=== PATIENT | female | born 1940 | race Caucasian/White ===

== ENCOUNTER 2017-11-21 05:33 | Inpatient (IN) | payer OTHER ==
[~2017-11-21] VITALS: Ht 154.9 cm; Wt 103.0 kg
[2017-11-21] MEDS ORDERED: ASPIRIN325 MG PO (06:18)
[2017-11-21] MEDS ORDERED: NORVASC10 MG PO (06:19)
[2017-11-21] MEDS ORDERED: TENORMIN50 MG PO (06:19)
[2017-11-21] MEDS ORDERED: LIPITOR40 MG PO (06:20)
[2017-11-21] MEDS ORDERED: PLAVIX75 MG PO (06:20)
[2017-11-21] MEDS ORDERED: VITAMIN B-12250 MCG PO (06:21)
[2017-11-21] MEDS ORDERED: HYDROCODON-ACE1 EAC7 PO (06:22)
[2017-11-21] MEDS ORDERED: GLUCOTROL10 MG PO (06:22)
[2017-11-21] MEDS ORDERED: HUMALOG MI100 UNIT/1 SC ×2 (06:24→06:25)
[2017-11-21] MEDS ORDERED: TIROSINT75 MCG PO (06:26)
[2017-11-21] MEDS ORDERED: PROTONIX40 MG PO (06:27)
[2017-11-21] MEDS ORDERED: ZESTRIL40 MG PO (06:27)
[2017-11-21] MEDS ORDERED: GLUCOPHAGE850 MG PO (06:27)
[2017-11-21] MEDS ORDERED: MULTI VITAMIN1 EACH PO (06:28)
[2017-11-21] MEDS ORDERED: VOLTAREN 1% GE100 GM TP (06:28)
[2017-11-21 06:42] LABS: HEMOGLOBIN 9.3 G/DL (11.9-15.5); MCH 29.8 PG (29.0-34.0); MCHC 32.1 G/DL (30.0-36.0); MCV 92.9 FL (83-99); PLATELET COUNT 237 K/uL (156-360); RBC DIS.WIDTH-CV 13.3 % (11.8-14.6); RBC DIS.WIDTH-SD 44.9 % (39-53); RED BLOOD COUNT 3.12 M/uL (3.80-5.20); WHITE BLOOD COUNT 7.2 K/uL (4.1-10.2)
[2017-11-21 06:51] LABS: PTT 22.7 SEC (25-37)
[2017-11-21 07:13] LABS: TROP-I INTERPRETATION NEGATIVE; TROPONIN-I 0.02 ng/mL (0.0-0.30)
[2017-11-21 07:40] LABS: ALBUMIN 3.9 G/DL (3.2-4.8); ALKALINE PHOSPHATASE 69 IU/L (3-129); ALT (GPT) 12 IU/L (3-49); AST (GOT) 12 IU/L (2-34); CHLORIDE 97 MEQ/L (99-109); CREATININE 1.2 MG/DL (0.6-1.3); GFR ESTIMATE (CALCULATED) 47 mL/min/; GLUCOSE 350 mg/dL (70-99); POTASSIUM 4.6 MEQ/L (3.7-5.4); SODIUM 132 MEQ/L (136-147); TOTAL BILIRUBIN 0.2 MG/DL (0.0-1.0); TOTAL PROTEIN 5.7 G/DL (6.4-8.3); UREA NITROGEN (BUN) 27 mg/dL (9-23)
[2017-11-21 09:19] LABS: TROP-I INTERPRETATION NEGATIVE; TROPONIN-I 0.21 ng/mL (0.0-0.30)
[2017-11-21] MEDS ORDERED: NEURONTIN300 MG PO (09:27)
[2017-11-21] MEDS ORDERED: PROAIR HFA8.5 GM IH (09:28)
[2017-11-21] MEDS ORDERED: NITROSTAT0.4 MG SL (09:31)
[2017-11-21 10:46] LABS: HDL CHOLESTEROL 56 MG/DL (Desirable>=50); LDL CHOLESTEROL 50 mg/dL (Desirable<100); NON-HDL CHOLESTEROL 77 mg/dL (Desirable<160); TOTAL CHOLESTEROL 133 mg/dL (Desirable<200); TRIGLYCERIDES 135 MG/DL (Normal: <150)
[2017-11-21 12:30] VITALS: BP 149/73
[2017-11-21 12:30] LABS: TROP-I INTERPRETATION POSITIVE
[2017-11-21 12:30] LABS: HEMOGLOBIN A1c (GLYCOHEMOGLOB) 7.1 % (Below 5.7)
[2017-11-21 12:33] LABS: TROPONIN-I 4.01 ng/mL (0.0-0.30)
[2017-11-21 15:45] VITALS: BP 115/55
[2017-11-21 19:33] LABS: TROP-I INTERPRETATION POSITIVE; TROPONIN-I 32.99 ng/mL (0.0-0.30)
[2017-11-21 20:25] VITALS: BP 132/63
[2017-11-21 22:25] VITALS: BP 136/64
[2017-11-22] VITALS (13 sets, daily range): BP systolic 115–147; BP diastolic 47–67
[2017-11-22 08:40] LABS: HEMOGLOBIN 9.3 G/DL (11.9-15.5); MCH 29.5 PG (29.0-34.0); MCHC 32.1 G/DL (30.0-36.0); MCV 92.1 FL (83-99); PLATELET COUNT 235 K/uL (156-360); RBC DIS.WIDTH-CV 13.6 % (11.8-14.6); RBC DIS.WIDTH-SD 46.5 % (39-53); RED BLOOD COUNT 3.15 M/uL (3.80-5.20)
[2017-11-22 09:03] LABS: CHLORIDE 103 MEQ/L (99-109); GFR ESTIMATE (CALCULATED) 57 mL/min/; GLUCOSE 197 mg/dL (70-99); POTASSIUM 4.3 MEQ/L (3.7-5.4); SODIUM 136 MEQ/L (136-147); UREA NITROGEN (BUN) 27 mg/dL (9-23)
[2017-11-23 04:02] VITALS: BP 132/60
[2017-11-23 05:01] LABS: BASOPHIL (%) 0.2 % (0-1); EOSINOPHIL (%) 2.7 % (0-5); EOSINOPHIL COUNT 0.2 K/uL (0-0.3); HEMATOCRIT 26.3 % (36.0-46.0); HEMOGLOBIN 8.6 G/DL (11.9-15.5); IMMATURE GRANULOCYTE (%) 0.3 % (0.0-0.7); LYMPHOCYTE (%) 16.4 % (15-42); MCH 29.9 PG (29.0-34.0); MCHC 32.7 G/DL (30.0-36.0); MCV 91.3 FL (83-99); MONOCYTE (%) 9.9 % (3-12); MONOCYTE COUNT 0.6 K/uL (0-0.8); NEUTROPHIL (%) 70.5 % (45-76); NEUTROPHIL COUNT 4.1 K/uL (1.8-6.4); PLATELET COUNT 199 K/uL (156-360); RBC DIS.WIDTH-CV 13.5 % (11.8-14.6); RBC DIS.WIDTH-SD 45.6 % (39-53); RED BLOOD COUNT 2.88 M/uL (3.80-5.20); WHITE BLOOD COUNT 5.9 K/uL (4.1-10.2)
[2017-11-23 05:21] LABS: CHLORIDE 104 mEq/L (99-109); POTASSIUM 4.5 mEq/L (3.7-5.4); SODIUM 138 mEq/L (136-147)
[2017-11-23 05:23] LABS: GLUCOSE 170 mg/dL (70-99)
[2017-11-23 05:27] LABS: CREATININE 1.2 mg/dL (0.6-1.3); GFR ESTIMATE (CALCULATED) 47 mL/min/
[2017-11-23 05:28] LABS: UREA NITROGEN (BUN) 27 mg/dL (9-23)
[2017-11-23 09:06] VITALS: BP 124/79
[2017-11-23 11:34] VITALS: BP 137/64
[2017-11-23 15:32] VITALS: BP 142/78
[2017-11-23 19:53] VITALS: BP 142/62
[2017-11-24 00:16] VITALS: BP 121/53
[2017-11-24 04:35] VITALS: BP 138/60
[2017-11-24 05:47] LABS: HEMATOCRIT 27.5 % (36.0-46.0); HEMOGLOBIN 8.9 G/DL (11.9-15.5); MCH 29.9 PG (29.0-34.0); MCHC 32.4 G/DL (30.0-36.0); MCV 92.3 FL (83-99); PLATELET COUNT 204 K/uL (156-360); RBC DIS.WIDTH-CV 13.2 % (11.8-14.6); RBC DIS.WIDTH-SD 44.1 % (39-53); RED BLOOD COUNT 2.98 M/uL (3.80-5.20); WHITE BLOOD COUNT 5.2 K/uL (4.1-10.2)
[2017-11-24 06:21] LABS: CHLORIDE 102 MEQ/L (99-109); GFR ESTIMATE (CALCULATED) 57 mL/min/; GLUCOSE 152 mg/dL (70-99); POTASSIUM 4.5 MEQ/L (3.7-5.4); SODIUM 138 MEQ/L (136-147); UREA NITROGEN (BUN) 28 mg/dL (9-23)
[2017-11-24 09:32] VITALS: BP 127/69
[2017-11-24] MEDS ORDERED: FUROSEMIDE20 MG PO (10:55)
[2017-11-24] MEDS ORDERED: ASPIR-LOW81 MG PO (12:24)
== END 2017-11-24 13:24 | disposition home health service (06) | DRG 282 ==
LOC: EME 05:33 → EDOF 09:32 → 4EAST 09:32 → ENRESERV 09:40 → EDOF 09:49 → ENRESERV 11:11 → 4EAST 12:41 → ENPENDDIS 11-24 → 4EAST 11-24 13:24
PROVIDERS: Emergency Medicine; Hospitalist; Internal Medicine; Physician Assistant
DX: I21.4 Non-ST elevation (NSTEMI) myocardial infarction (principal); I25.110 Atherosclerotic heart disease of native coronary artery with unstable angina pectoris; E11.9 Type 2 diabetes mellitus without complications; I11.0 Hypertensive heart disease with heart failure; I50.9 Heart failure, unspecified; I27.20 Pulmonary hypertension, unspecified; I08.2 Rheumatic disorders of both aortic and tricuspid valves; E78.5 Hyperlipidemia, unspecified; D50.9 Iron deficiency anemia, unspecified; E03.9 Hypothyroidism, unspecified; Z95.1 Presence of aortocoronary bypass graft; Z79.4 Long term (current) use of insulin; Z79.02 Long term (current) use of antithrombotics/antiplatelets; Z79.82 Long term (current) use of aspirin; Z90.710 Acquired absence of both cervix and uterus; Z82.49 Family history of ischemic heart disease and other diseases of the circulatory system
CPT/HCPCS: 70450; 71045; 71275; 80048; 80053; 80061; 82272; 82948; 83036; 84484; 85025; 85027; 85610; 85730; 93005; 93306; 94799; 99281; 99285; C1760; C1769; C1887; C1894; J1644; J1815; J1940; J2250; J2270; J3010; J7040; S0028

== ENCOUNTER 2018-04-07 17:49 | Inpatient (IN) | payer OTHER ==
[~2018-04-07] VITALS: Ht 154.9 cm; Wt 95.5 kg
[~2018-04-07 17:49] MED LIST: ASPIR-LOW81 MG PO; ASPIRIN325 MG PO; FUROSEMIDE20 MG PO; GLUCOPHAGE850 MG PO; GLUCOTROL10 MG PO; HUMALOG MI100 UNIT/1 SC; HYDROCODON-ACE1 EAC7 PO; LIPITOR40 MG PO; MULTI VITAMIN1 EACH PO; NEURONTIN300 MG PO; NITROSTAT0.4 MG SL; NORVASC10 MG PO; PLAVIX75 MG PO; PROAIR HFA8.5 GM IH; PROTONIX40 MG PO; TENORMIN50 MG PO; TIROSINT75 MCG PO; VITAMIN B-12250 MCG PO; VOLTAREN 1% GE100 GM TP; ZESTRIL40 MG PO
[2018-04-07 18:30] LABS: BASOPHIL (%) 0.5 % (0-1); EOSINOPHIL (%) 1.2 % (0-5); EOSINOPHIL COUNT 0.1 K/uL (0-0.3); HEMATOCRIT 29.8 % (36.0-46.0); HEMOGLOBIN 9.9 G/DL (11.9-15.5); IMMATURE GRANULOCYTE (%) 0.5 % (0.0-0.7); LYMPHOCYTE (%) 11.3 % (15-42); LYMPHOCYTE COUNT 0.5 K/uL (1.0-2.8); MCH 30.3 PG (29.0-34.0); MCHC 33.2 G/DL (30.0-36.0); MCV 91.1 FL (83-99); MONOCYTE (%) 6.8 % (3-12); MONOCYTE COUNT 0.3 K/uL (0-0.8); NEUTROPHIL (%) 79.7 % (45-76); NEUTROPHIL COUNT 3.4 K/uL (1.8-6.4); PLATELET COUNT 191 K/uL (156-360); RBC DIS.WIDTH-CV 13.6 % (11.8-14.6); RBC DIS.WIDTH-SD 45.5 % (39-53); RED BLOOD COUNT 3.27 M/uL (3.80-5.20); WHITE BLOOD COUNT 4.2 K/uL (4.1-10.2)
[2018-04-07 18:43] LABS: ALBUMIN 4.3 g/dL (3.2-4.8)
[2018-04-07 18:44] LABS: CHLORIDE 102 mEq/L (99-109); INTER. NORMALIZED RATIO 1.1; POTASSIUM 4.2 mEq/L (3.7-5.4); SODIUM 136 mEq/L (136-147)
[2018-04-07 18:46] LABS: GLUCOSE 278 mg/dL (70-99); TOTAL PROTEIN 6.8 g/dL (6.4-8.3)
[2018-04-07 18:47] LABS: PTT 28.3 SEC (25-37)
[2018-04-07 18:48] LABS: TOTAL BILIRUBIN 0.3 mg/dL (0.0-1.0)
[2018-04-07 18:49] LABS: ALKALINE PHOSPHATASE 96 IU/L (3-129)
[2018-04-07 18:50] LABS: CREATININE 1.2 mg/dL (0.6-1.3); GFR ESTIMATE (CALCULATED) 46 mL/min/
[2018-04-07 18:51] LABS: AST (GOT) 27 IU/L (2-34); UREA NITROGEN (BUN) 18 mg/dL (9-23)
[2018-04-07 18:53] LABS: ALT (GPT) 18 IU/L (3-49)
[2018-04-07 18:58] LABS: TROP-I INTERPRETATION NEGATIVE; TROPONIN-I 0.04 ng/mL (0.0-0.30)
[2018-04-07] MEDS ORDERED: BENZONATATE100 MG PO (21:27)
[2018-04-07] MEDS ORDERED: DOXYCYCLINE HY100 MG PO (21:28)
[2018-04-07] MEDS ORDERED: ARTIFICIAL TEAR1510 BOTH EYES (21:29)
[2018-04-07] MEDS ORDERED: VITAMIN B122500 MCG PO (21:29)
[2018-04-07] MEDS ORDERED: ANBESOL12 ML MM (21:29)
[2018-04-07] MEDS ORDERED: FLONASE16 G1 BOTH NARES (21:30)
[2018-04-07] MEDS ORDERED: CLARITIN,ALAVAR10 MG PO (21:30)
[2018-04-07] MEDS ORDERED: TYLENOL WITH C1 EACH PO (21:31)
[2018-04-07] MEDS ORDERED: TUSSIN100 MG/5 M PO (21:31)
[2018-04-07] MEDS ORDERED: SYNTHROID75 MCG PO (21:34)
[2018-04-07] MEDS ORDERED: LASIX20 MG PO (21:35)
[2018-04-07 22:41] LABS: MAGNESIUM 1.3 mg/dL (1.3-2.7)
[2018-04-07 22:45] VITALS: BP 163/78
[2018-04-07 22:46] LABS: PHOSPHORUS 3.3 mg/dL (2.5-4.9)
[2018-04-07 23:00] VITALS: BP 141/68; BP 163/78
[2018-04-08] VITALS (21 sets, daily range): BP systolic 100–146; BP diastolic 45–89
[2018-04-08 01:01] LABS: TROP-I INTERPRETATION INDETERMINATE; TROPONIN-I 0.44 ng/mL (0.0-0.30)
[2018-04-08 05:05] LABS: HEMATOCRIT 25.9 % (36.0-46.0); HEMOGLOBIN 8.6 G/DL (11.9-15.5); MCH 29.9 PG (29.0-34.0); MCHC 33.2 G/DL (30.0-36.0); MCV 89.9 FL (83-99); PLATELET COUNT 181 K/uL (156-360); RBC DIS.WIDTH-CV 13.5 % (11.8-14.6); RBC DIS.WIDTH-SD 44.8 % (39-53); RED BLOOD COUNT 2.88 M/uL (3.80-5.20); WHITE BLOOD COUNT 3.5 K/uL (4.1-10.2)
[2018-04-08 05:13] LABS: CHLORIDE 95 mEq/L (99-109); SODIUM 130 mEq/L (136-147)
[2018-04-08 05:19] LABS: CREATININE 1.6 mg/dL (0.6-1.3); GFR ESTIMATE (CALCULATED) 33 mL/min/
[2018-04-08 05:20] LABS: UREA NITROGEN (BUN) 22 mg/dL (9-23)
[2018-04-08 05:21] LABS: GLUCOSE 551 mg/dL (70-99); MAGNESIUM 2.3 mg/dL (1.3-2.7); PHOSPHORUS 4.6 mg/dL (2.5-4.9); POTASSIUM 5.2 mEq/L (3.7-5.4)
[2018-04-08 05:31] LABS: TROP-I INTERPRETATION POSITIVE
[2018-04-08 05:35] LABS: TROPONIN-I 1.68 ng/mL (0.0-0.30)
[2018-04-08 12:41] LABS: TROP-I INTERPRETATION POSITIVE; TROPONIN-I 3.35 ng/mL (0.0-0.30)
[2018-04-08 15:56] LABS: TROP-I INTERPRETATION POSITIVE; TROPONIN-I 2.97 ng/mL (0.0-0.30)
[2018-04-08 16:09] LABS: THYROTROPIN (TSH) 0.53 MIU/L (0.4-5.5)
[2018-04-08 16:23] LABS: CHLORIDE 99 MEQ/L (99-109); CREATININE 1.2 MG/DL (0.6-1.3); GFR ESTIMATE (CALCULATED) 46 mL/min/; HIGH-SENS C-REACTIVE PROTEIN 0.87 MG/DL (0.02-0.20); POTASSIUM 4.6 MEQ/L (3.7-5.4); SODIUM 134 MEQ/L (136-147); UREA NITROGEN (BUN) 26 mg/dL (9-23)
[2018-04-08 16:24] LABS: GLUCOSE 204 mg/dL (70-99)
[2018-04-09] VITALS (16 sets, daily range): BP systolic 113–162; BP diastolic 44–81
[2018-04-09 04:32] LABS: CHLORIDE 97 mEq/L (99-109); POTASSIUM 5.3 mEq/L (3.7-5.4); SODIUM 130 mEq/L (136-147)
[2018-04-09 04:37] LABS: PHOSPHORUS 3.6 mg/dL (2.5-4.9)
[2018-04-09 04:38] LABS: CREATININE 1.4 mg/dL (0.6-1.3); GFR ESTIMATE (CALCULATED) 39 mL/min/
[2018-04-09 04:39] LABS: UREA NITROGEN (BUN) 29 mg/dL (9-23)
[2018-04-09 04:44] LABS: GLUCOSE 379 mg/dL (70-99)
[2018-04-09 04:45] LABS: BASOPHIL (%) 0.1 % (0-1); EOSINOPHIL (%) 0 % (0-5); HEMATOCRIT 26.8 % (36.0-46.0); HEMOGLOBIN 8.9 G/DL (11.9-15.5); IMMATURE GRANULOCYTE (%) 0.5 % (0.0-0.7); LYMPHOCYTE (%) 3.7 % (15-42); LYMPHOCYTE COUNT 0.3 K/uL (1.0-2.8); MCHC 33.2 G/DL (30.0-36.0); MCV 90.2 FL (83-99); MONOCYTE (%) 2.4 % (3-12); MONOCYTE COUNT 0.2 K/uL (0-0.8); NEUTROPHIL (%) 93.3 % (45-76); NEUTROPHIL COUNT 8.2 K/uL (1.8-6.4); PLATELET COUNT 201 K/uL (156-360); RBC DIS.WIDTH-CV 13.3 % (11.8-14.6); RBC DIS.WIDTH-SD 43.9 % (39-53); RED BLOOD COUNT 2.97 M/uL (3.80-5.20); WHITE BLOOD COUNT 8.8 K/uL (4.1-10.2)
[2018-04-10 00:07] VITALS: BP 141/67
[2018-04-10 04:36] VITALS: BP 152/66
[2018-04-10 06:45] LABS: HEMATOCRIT 26.5 % (36.0-46.0); HEMOGLOBIN 8.5 G/DL (11.9-15.5); MCH 29.1 PG (29.0-34.0); MCHC 32.1 G/DL (30.0-36.0); MCV 90.8 FL (83-99); PLATELET COUNT 198 K/uL (156-360); RBC DIS.WIDTH-CV 13.1 % (11.8-14.6); RBC DIS.WIDTH-SD 43.6 % (39-53); RED BLOOD COUNT 2.92 M/uL (3.80-5.20); WHITE BLOOD COUNT 6.7 K/uL (4.1-10.2)
[2018-04-10 07:08] LABS: CHLORIDE 101 MEQ/L (99-109); CREATININE 1.1 MG/DL (0.6-1.3); GFR ESTIMATE (CALCULATED) 51 mL/min/; GLUCOSE 295 mg/dL (70-99); MAGNESIUM 1.8 mg/dl (1.3-2.7); PHOSPHORUS 3.8 mg/dL (2.5-4.9); POTASSIUM 5.2 MEQ/L (3.7-5.4); SODIUM 133 MEQ/L (136-147); UREA NITROGEN (BUN) 31 mg/dL (9-23)
[2018-04-10 07:40] VITALS: BP 159/65
[2018-04-10 11:58] VITALS: BP 138/58
[2018-04-10 16:19] VITALS: BP 121/59
[2018-04-10 22:00] VITALS: BP 135/55
[2018-04-11 00:52] VITALS: BP 144/59
[2018-04-11 04:12] VITALS: BP 162/61
[2018-04-11 06:14] LABS: HEMATOCRIT 26.3 % (36.0-46.0); HEMOGLOBIN 8.5 G/DL (11.9-15.5); MCH 29.3 PG (29.0-34.0); MCHC 32.3 G/DL (30.0-36.0); MCV 90.7 FL (83-99); PLATELET COUNT 207 K/uL (156-360); RBC DIS.WIDTH-CV 13.2 % (11.8-14.6); RBC DIS.WIDTH-SD 44.3 % (39-53); WHITE BLOOD COUNT 8.3 K/uL (4.1-10.2)
[2018-04-11 06:38] LABS: CHLORIDE 102 MEQ/L (99-109); CREATININE 1.2 MG/DL (0.6-1.3); GFR ESTIMATE (CALCULATED) 46 mL/min/; GLUCOSE 239 mg/dL (70-99); MAGNESIUM 1.7 mg/dl (1.3-2.7); PHOSPHORUS 3.1 mg/dL (2.5-4.9); POTASSIUM 4.5 MEQ/L (3.7-5.4); SODIUM 135 MEQ/L (136-147); UREA NITROGEN (BUN) 36 mg/dL (9-23)
[2018-04-11 08:05] VITALS: BP 147/98
[2018-04-11 11:19] VITALS: BP 153/67
[2018-04-11 14:57] VITALS: BP 140/63
[2018-04-11 19:34] VITALS: BP 132/62
[2018-04-12 02:08] VITALS: BP 137/60
[2018-04-12 05:39] LABS: HEMATOCRIT 25.9 % (36.0-46.0); HEMOGLOBIN 8.4 G/DL (11.9-15.5); MCH 29.6 PG (29.0-34.0); MCHC 32.4 G/DL (30.0-36.0); MCV 91.2 FL (83-99); PLATELET COUNT 206 K/uL (156-360); RBC DIS.WIDTH-CV 13.5 % (11.8-14.6); RBC DIS.WIDTH-SD 44.8 % (39-53); RED BLOOD COUNT 2.84 M/uL (3.80-5.20); WHITE BLOOD COUNT 6.2 K/uL (4.1-10.2)
[2018-04-12 06:06] LABS: CHLORIDE 105 MEQ/L (99-109); CREATININE 1.1 MG/DL (0.6-1.3); GFR ESTIMATE (CALCULATED) 51 mL/min/; MAGNESIUM 1.6 mg/dl (1.3-2.7); PHOSPHORUS 4.1 mg/dL (2.5-4.9); SODIUM 140 MEQ/L (136-147); UREA NITROGEN (BUN) 34 mg/dL (9-23)
[2018-04-12 06:12] LABS: GLUCOSE 60 mg/dL (70-99)
[2018-04-12 07:25] VITALS: BP 146/63
[2018-04-12 11:31] VITALS: BP 117/56
[2018-04-12 15:08] VITALS: BP 117/58
[2018-04-12 23:57] VITALS: BP 154/66
[2018-04-13 06:22] LABS: HEMATOCRIT 28.4 % (36.0-46.0); HEMOGLOBIN 9.3 G/DL (11.9-15.5); MCH 29.3 PG (29.0-34.0); MCHC 32.7 G/DL (30.0-36.0); MCV 89.6 FL (83-99); PLATELET COUNT 245 K/uL (156-360); RBC DIS.WIDTH-CV 13.2 % (11.8-14.6); RBC DIS.WIDTH-SD 43.6 % (39-53); RED BLOOD COUNT 3.17 M/uL (3.80-5.20)
[2018-04-13 06:45] LABS: CHLORIDE 99 MEQ/L (99-109); CREATININE 1.3 MG/DL (0.6-1.3); GFR ESTIMATE (CALCULATED) 42 mL/min/; GLUCOSE 303 mg/dL (70-99); MAGNESIUM 1.6 mg/dl (1.3-2.7); POTASSIUM 4.1 MEQ/L (3.7-5.4); SODIUM 135 MEQ/L (136-147); UREA NITROGEN (BUN) 34 mg/dL (9-23)
[2018-04-13 07:21] VITALS: BP 168/70
[2018-04-13 11:34] VITALS: BP 138/62
[2018-04-13] MEDS ORDERED: MONTELUKAST SOD10 MG PO (13:10)
[2018-04-13] MEDS ORDERED: DULERA 100 MCG/13 GM IH (13:35)
[2018-04-13 15:51] VITALS: BP 118/56
[2018-04-13 20:14] VITALS: BP 133/62
[2018-04-14 00:31] VITALS: BP 157/68
[2018-04-14 03:29] VITALS: BP 164/72
[2018-04-14 03:58] LABS: HEMATOCRIT 24.4 % (36.0-46.0); HEMOGLOBIN 8.3 G/DL (11.9-15.5); MCH 30.2 PG (29.0-34.0); MCV 88.7 FL (83-99); PLATELET COUNT 214 K/uL (156-360); RBC DIS.WIDTH-CV 13.5 % (11.8-14.6); RBC DIS.WIDTH-SD 43.3 % (39-53); RED BLOOD COUNT 2.75 M/uL (3.80-5.20); WHITE BLOOD COUNT 6.6 K/uL (4.1-10.2)
[2018-04-14 04:24] LABS: CHLORIDE 103 mEq/L (99-109); SODIUM 137 mEq/L (136-147)
[2018-04-14 04:25] LABS: MAGNESIUM 1.7 mg/dL (1.3-2.7)
[2018-04-14 04:29] LABS: PHOSPHORUS 3.9 mg/dL (2.5-4.9)
[2018-04-14 04:30] LABS: CREATININE 1.1 mg/dL (0.6-1.3); GFR ESTIMATE (CALCULATED) 51 mL/min/
[2018-04-14 04:31] LABS: UREA NITROGEN (BUN) 38 mg/dL (9-23)
[2018-04-14 04:47] LABS: GLUCOSE 109 mg/dL (70-99)
[2018-04-14 06:40] LABS: CHLORIDE 103 MEQ/L (99-109); CREATININE 1.2 MG/DL (0.6-1.3); GFR ESTIMATE (CALCULATED) 46 mL/min/; GLUCOSE 107 mg/dL (70-99); POTASSIUM 4.2 MEQ/L (3.7-5.4); SODIUM 140 MEQ/L (136-147); UREA NITROGEN (BUN) 36 mg/dL (9-23)
[2018-04-14 07:11] VITALS: BP 140/84
[2018-04-14] MEDS ORDERED: HUMALOG MI100 UNIT/1 SC ×2 (11:58→11:59)
[2018-04-14] MEDS ORDERED: PREDNISONE10 MG PO (12:01)
[2018-04-14] MEDS ORDERED: IMDUR60 MG PO (12:12)
== END 2018-04-14 15:35 | disposition home health service (06) | DRG 302 ==
LOC: EME 17:49 → 5SOUTH 21:58 → EDOF 21:58 → 4WEST 21:58 → ENRESERV 22:04 → 4WEST 22:54 → ENRESERV 04-09 12:17 → 4EAST 04-09 16:01 → ENRESERV 04-11 08:33 → 5SOUTH 04-11 11:01
PROVIDERS: Emergency Medicine; Hospitalist; Internal Medicine; Student in an Organized Health Care Education/Training Program
DX: I25.110 Atherosclerotic heart disease of native coronary artery with unstable angina pectoris (principal); J96.01 Acute respiratory failure with hypoxia; J21.9 Acute bronchiolitis, unspecified; E87.1 Hypo-osmolality and hyponatremia; N17.9 Acute kidney failure, unspecified; J45.901 Unspecified asthma with (acute) exacerbation; Z68.41 Body mass index [BMI] 40.0-44.9, adult; E11.65 Type 2 diabetes mellitus with hyperglycemia; D64.9 Anemia, unspecified; E03.9 Hypothyroidism, unspecified; E11.51 Type 2 diabetes mellitus with diabetic peripheral angiopathy without gangrene; E78.5 Hyperlipidemia, unspecified; E83.42 Hypomagnesemia; I11.9 Hypertensive heart disease without heart failure; J20.9 Acute bronchitis, unspecified; T38.0X5A Adverse effect of glucocorticoids and synthetic analogues, initial encounter; J84.10 Pulmonary fibrosis, unspecified; E66.9 Obesity, unspecified; E86.9 Volume depletion, unspecified; I35.0 Nonrheumatic aortic (valve) stenosis; G47.30 Sleep apnea, unspecified; Z60.2 Problems related to living alone; I25.2 Old myocardial infarction; Z79.4 Long term (current) use of insulin; Z88.0 Allergy status to penicillin; Z95.1 Presence of aortocoronary bypass graft; Z79.82 Long term (current) use of aspirin; Z82.49 Family history of ischemic heart disease and other diseases of the circulatory system
CPT/HCPCS: 71045; 71275; 80048; 80048 91; 80053; 82948; 83605; 83735; 83880; 84100; 84145 90; 84443; 84484; 85025; 85027; 85610; 85730; 86141; 86615 90; 86713 90; 87449; 87493; 87502; 87641; 93005; 94640; 94640 76; 94799; 97530 GO; 99202; 99281; 99285; J1644; J1815; J1940; J2920; J2930; J3475; J7512

== ENCOUNTER 2018-05-27 09:45 | Inpatient (IN) | payer OTHER ==
[~2018-05-27] VITALS: Ht 154.9 cm; Wt 104.8 kg
[~2018-05-27 09:45] MED LIST changes: +ANBESOL12 ML MM; +ARTIFICIAL TEAR1510 BOTH EYES; +BENZONATATE100 MG PO; +CLARITIN,ALAVAR10 MG PO; +DOXYCYCLINE HY100 MG PO; +DULERA 100 MCG/13 GM IH; +FLONASE16 G1 BOTH NARES; +IMDUR60 MG PO; +LASIX20 MG PO; +MONTELUKAST SOD10 MG PO; +PREDNISONE10 MG PO; +SYNTHROID75 MCG PO; +TUSSIN100 MG/5 M PO; +TYLENOL WITH C1 EACH PO; +VITAMIN B122500 MCG PO
[2018-05-27 10:27] LABS: BASOPHIL (%) 0.3 % (0-1); EOSINOPHIL (%) 1.5 % (0-5); EOSINOPHIL COUNT 0.1 K/uL (0-0.3); HEMATOCRIT 29.5 % (36.0-46.0); HEMOGLOBIN 9.5 G/DL (11.9-15.5); IMMATURE GRANULOCYTE (%) 0.4 % (0.0-0.7); LYMPHOCYTE (%) 12.7 % (15-42); LYMPHOCYTE COUNT 0.9 K/uL (1.0-2.8); MCH 29.6 PG (29.0-34.0); MCHC 32.2 G/DL (30.0-36.0); MCV 91.9 FL (83-99); MONOCYTE (%) 4.9 % (3-12); MONOCYTE COUNT 0.4 K/uL (0-0.8); NEUTROPHIL (%) 80.2 % (45-76); PLATELET COUNT 259 K/uL (156-360); RBC DIS.WIDTH-CV 14.2 % (11.8-14.6); RED BLOOD COUNT 3.21 M/uL (3.80-5.20); WHITE BLOOD COUNT 7.4 K/uL (4.1-10.2)
[2018-05-27 10:35] LABS: PTT 28.4 SEC (25-37)
[2018-05-27 10:36] LABS: CHLORIDE 103 mEq/L (99-109); POTASSIUM 4.5 mEq/L (3.7-5.4); SODIUM 136 mEq/L (136-147)
[2018-05-27 10:38] LABS: GLUCOSE 177 mg/dL (70-99)
[2018-05-27 10:42] LABS: GFR ESTIMATE (CALCULATED) 57 mL/min/
[2018-05-27 10:43] LABS: UREA NITROGEN (BUN) 14 mg/dL (9-23)
[2018-05-27 10:51] LABS: TROP-I INTERPRETATION NEGATIVE; TROPONIN-I < 0.01 ng/mL (0.0-0.30)
[2018-05-27 13:06] LABS: TROP-I INTERPRETATION NEGATIVE; TROPONIN-I 0.01 ng/mL (0.0-0.30)
[2018-05-27 13:11] LABS: HDL CHOLESTEROL 49 MG/DL (Desirable>=50); LDL CHOLESTEROL 34 mg/dL (Desirable<100); NON-HDL CHOLESTEROL 54 mg/dL (Desirable<160); TOTAL CHOLESTEROL 103 mg/dL (Desirable<200); TRIGLYCERIDES 101 MG/DL (Normal: <150)
[2018-05-27 13:42] VITALS: BP 118/58
[2018-05-27] MEDS ORDERED: ALBUTEROL SULFAT2 MG PO (14:11)
[2018-05-27] MEDS ORDERED: IMDUR60 MG PO (14:12)
[2018-05-27 17:18] VITALS: BP 125/61
[2018-05-27 18:54] LABS: TROPONIN-I 0.94 ng/mL (0.0-0.30)
[2018-05-27 18:55] LABS: TROP-I INTERPRETATION POSITIVE
[2018-05-27 19:00] VITALS: BP 119/68
[2018-05-27 20:06] LABS: INTER. NORMALIZED RATIO 1.1
[2018-05-27 20:09] LABS: PTT 25.9 SEC (25-37)
[2018-05-27 23:00] VITALS: BP 105/55
[2018-05-28 02:07] LABS: HEMATOCRIT 25.6 % (36.0-46.0); HEMOGLOBIN 8.1 G/DL (11.9-15.5); MCH 29.5 PG (29.0-34.0); MCHC 31.6 G/DL (30.0-36.0); MCV 93.1 FL (83-99); PLATELET COUNT 224 K/uL (156-360); RBC DIS.WIDTH-CV 14.5 % (11.8-14.6); RBC DIS.WIDTH-SD 49.1 % (39-53); RED BLOOD COUNT 2.75 M/uL (3.80-5.20); WHITE BLOOD COUNT 4.5 K/uL (4.1-10.2)
[2018-05-28 02:17] LABS: CHLORIDE 101 mEq/L (99-109); POTASSIUM 5.4 mEq/L (3.7-5.4); SODIUM 131 mEq/L (136-147)
[2018-05-28 02:23] LABS: GFR ESTIMATE (CALCULATED) 31 mL/min/
[2018-05-28 02:25] LABS: CREATININE 1.7 mg/dL (0.6-1.3); GLUCOSE 357 mg/dL (70-99); UREA NITROGEN (BUN) 24 mg/dL (9-23)
[2018-05-28 03:15] VITALS: BP 124/58
[2018-05-28 07:19] VITALS: BP 103/52
[2018-05-28 11:19] LABS: TROP-I INTERPRETATION POSITIVE; TROPONIN-I 13.61 ng/mL (0.0-0.30)
[2018-05-28 11:51] VITALS: BP 119/54
[2018-05-28 16:48] VITALS: BP 123/56
[2018-05-28 18:00] LABS: APPEARANCE TURBID ((CLEAR)); BILIRUBIN NEGATIVE; BLOOD MODERATE; GLUCOSE (STRIP) 50; KETONES NEGATIVE; LEUKOCYTES NEGATIVE; NITRITE NEGATIVE; PROTEIN (STRIP) 100; SPECIFIC GRAVITY 1.032 (1.000-1.030); UROBILINOGEN 0.2 MG/DL (0.2-1.0)
[2018-05-28 18:01] LABS: COLOR BROWN ((YELLOW))
[2018-05-28 18:24] LABS: BACTERIA 1+ /HPF; EPITHELIAL CELLS 1+ /HPF; MUCUS RARE /LPF; RED BLOOD CELLS TNTC /HPF (0-5); WHITE BLOOD CELLS 0-5 /HPF (0-5)
[2018-05-28 19:00] VITALS: BP 138/63
[2018-05-28 20:30] LABS: UR CREATININE CONCENTRATION 123.5 MG/DL
[2018-05-28 22:33] LABS: CHLORIDE 99 mEq/L (99-109); POTASSIUM 5.5 mEq/L (3.7-5.4); SODIUM 128 mEq/L (136-147)
[2018-05-28 22:39] LABS: GFR ESTIMATE (CALCULATED) 20 mL/min/
[2018-05-28 22:48] LABS: CREATININE 2.5 mg/dL (0.6-1.3); GLUCOSE 404 mg/dL (70-99); UREA NITROGEN (BUN) 50 mg/dL (9-23)
[2018-05-28 23:00] VITALS: BP 125/75
[2018-05-29 04:00] VITALS: BP 147/64
[2018-05-29 05:07] LABS: BASOPHIL (%) 0.1 % (0-1); EOSINOPHIL (%) 0 % (0-5); HEMATOCRIT 24.9 % (36.0-46.0); IMMATURE GRANULOCYTE (%) 0.9 % (0.0-0.7); LYMPHOCYTE (%) 3.2 % (15-42); LYMPHOCYTE COUNT 0.4 K/uL (1.0-2.8); MCH 29.5 PG (29.0-34.0); MCHC 32.1 G/DL (30.0-36.0); MCV 91.9 FL (83-99); MONOCYTE COUNT 0.9 K/uL (0-0.8); NEUTROPHIL (%) 87.8 % (45-76); NEUTROPHIL COUNT 9.7 K/uL (1.8-6.4); NRBC (%) 0.2 /100 WBC (0-0); PLATELET COUNT 241 K/uL (156-360); RBC DIS.WIDTH-CV 14.6 % (11.8-14.6); RED BLOOD COUNT 2.71 M/uL (3.80-5.20)
[2018-05-29 05:38] LABS: CHLORIDE 98 MEQ/L (99-109); CREATININE 2.4 MG/DL (0.6-1.3); GFR ESTIMATE (CALCULATED) 21 mL/min/; GLUCOSE 256 mg/dL (70-99); MAGNESIUM 1.5 mg/dl (1.3-2.7); PHOSPHORUS 5.9 mg/dL (2.5-4.9); POTASSIUM 5.5 MEQ/L (3.7-5.4); SODIUM 127 MEQ/L (136-147); UREA NITROGEN (BUN) 48 mg/dL (9-23); URIC ACID 8.2 mg/dL (3.1-9.2)
[2018-05-29 07:16] VITALS: BP 136/62
[2018-05-29 09:20] LABS: CHLORIDE 99 MEQ/L (99-109); CREATININE 2.3 MG/DL (0.6-1.3); GFR ESTIMATE (CALCULATED) 22 mL/min/; GLUCOSE 286 mg/dL (70-99); SODIUM 129 MEQ/L (136-147); UREA NITROGEN (BUN) 50 mg/dL (9-23)
[2018-05-29 12:00] VITALS: BP 138/62
[2018-05-29 15:30] VITALS: BP 125/64
[2018-05-29 19:25] LABS: CHLORIDE 97 MEQ/L (99-109); CREATININE 2.4 MG/DL (0.6-1.3); GFR ESTIMATE (CALCULATED) 21 mL/min/; GLUCOSE 328 mg/dL (70-99); POTASSIUM 5.1 MEQ/L (3.7-5.4); SODIUM 126 MEQ/L (136-147); UREA NITROGEN (BUN) 50 mg/dL (9-23)
[2018-05-29 20:00] VITALS: BP 133/60
[2018-05-29 23:38] VITALS: BP 122/55
[2018-05-30 04:50] VITALS: BP 128/58
[2018-05-30 05:46] LABS: CHLORIDE 97 MEQ/L (99-109); CREATININE 2.1 MG/DL (0.6-1.3); GFR ESTIMATE (CALCULATED) 24 mL/min/; GLUCOSE 208 mg/dL (70-99); PHOSPHORUS 5.7 mg/dL (2.5-4.9); POTASSIUM 5.4 MEQ/L (3.7-5.4); SODIUM 129 MEQ/L (136-147); UREA NITROGEN (BUN) 55 mg/dL (9-23)
[2018-05-30 08:25] VITALS: BP 111/54
[2018-05-30 11:30] VITALS: BP 136/71
[2018-05-30 15:30] VITALS: BP 139/54
[2018-05-30 19:00] VITALS: BP 165/72
[2018-05-30 23:00] VITALS: BP 152/67
[2018-05-31 04:00] VITALS: BP 146/63
[2018-05-31 06:14] LABS: ALBUMIN 3.8 G/DL (3.2-4.8); CHLORIDE 105 MEQ/L (99-109); GFR ESTIMATE (CALCULATED) 33 mL/min/; GLUCOSE 193 mg/dL (70-99); PHOSPHORUS 4.9 mg/dL (2.5-4.9); POTASSIUM 5.1 MEQ/L (3.7-5.4); SODIUM 135 MEQ/L (136-147); UREA NITROGEN (BUN) 49 mg/dL (9-23)
[2018-05-31 06:20] LABS: CREATININE 1.6 MG/DL (0.6-1.3)
[2018-05-31 07:44] VITALS: BP 140/64
[2018-05-31 11:21] VITALS: BP 161/70
[2018-05-31 16:27] VITALS: BP 124/77
[2018-05-31 19:30] VITALS: BP 130/63
[2018-06-01 00:19] VITALS: BP 141/81
[2018-06-01 03:58] VITALS: BP 125/83
[2018-06-01 07:08] VITALS: BP 138/61
[2018-06-01 08:12] LABS: BASOPHIL (%) 0.2 % (0-1); EOSINOPHIL (%) 1.4 % (0-5); EOSINOPHIL COUNT 0.1 K/uL (0-0.3); HEMATOCRIT 27.9 % (36.0-46.0); IMMATURE GRANULOCYTE (%) 0.9 % (0.0-0.7); LYMPHOCYTE (%) 14.5 % (15-42); LYMPHOCYTE COUNT 1.2 K/uL (1.0-2.8); MCH 29.3 PG (29.0-34.0); MCHC 32.3 G/DL (30.0-36.0); MCV 90.9 FL (83-99); MONOCYTE (%) 12.9 % (3-12); MONOCYTE COUNT 1.1 K/uL (0-0.8); NEUTROPHIL (%) 70.1 % (45-76); PLATELET COUNT 240 K/uL (156-360); RBC DIS.WIDTH-CV 14.6 % (11.8-14.6); RBC DIS.WIDTH-SD 48.1 % (39-53); RED BLOOD COUNT 3.07 M/uL (3.80-5.20); WHITE BLOOD COUNT 8.5 K/uL (4.1-10.2)
[2018-06-01 08:59] LABS: CHLORIDE 105 MEQ/L (99-109); GFR ESTIMATE (CALCULATED) 51 mL/min/; POTASSIUM 4.1 MEQ/L (3.7-5.4); SODIUM 138 MEQ/L (136-147); UREA NITROGEN (BUN) 40 mg/dL (9-23)
[2018-06-01 09:10] LABS: CREATININE 1.1 MG/DL (0.6-1.3); GLUCOSE 60 mg/dL (70-99)
[2018-06-01] MEDS ORDERED: ASPIR-LOW81 MG PO (11:00)
[2018-06-01 12:11] VITALS: BP 142/65
== END 2018-06-01 15:00 | disposition home health service (06) | DRG 280 ==
LOC: EME 09:45 → 4EAST 11:22 → EDOF 11:22 → ENRESERV 11:48 → CANRESERV 11:48 → EDOF 11:55 → ENRESERV 11:58 → 4EAST 13:27 → ENPENDDIS 06-01 → 4EAST 06-01 15:00
PROVIDERS: Emergency Medicine; Hospitalist; Internal Medicine; Internal Medicine Cardiovascular Disease; Internal Medicine Nephrology
DX: I21.4 Non-ST elevation (NSTEMI) myocardial infarction (principal); J44.1 Chronic obstructive pulmonary disease with (acute) exacerbation; I11.0 Hypertensive heart disease with heart failure; I50.31 Acute diastolic (congestive) heart failure; J96.01 Acute respiratory failure with hypoxia; E87.5 Hyperkalemia; E87.1 Hypo-osmolality and hyponatremia; E87.2 Acidosis; N17.9 Acute kidney failure, unspecified; T50.8X5A Adverse effect of diagnostic agents, initial encounter; I25.10 Atherosclerotic heart disease of native coronary artery without angina pectoris; I25.82 Chronic total occlusion of coronary artery; I27.20 Pulmonary hypertension, unspecified; D64.9 Anemia, unspecified; I35.0 Nonrheumatic aortic (valve) stenosis; E78.5 Hyperlipidemia, unspecified; E11.9 Type 2 diabetes mellitus without complications; E66.01 Morbid (severe) obesity due to excess calories; Z68.41 Body mass index [BMI] 40.0-44.9, adult; I25.2 Old myocardial infarction; Z95.1 Presence of aortocoronary bypass graft; Z95.5 Presence of coronary angioplasty implant and graft; Z79.82 Long term (current) use of aspirin; Z79.4 Long term (current) use of insulin
CPT/HCPCS: 71045; 71275; 76770; 80048; 80048 91; 80061; 80069; 81003; 82010; 82570; 82948; 83735; 83880; 84100; 84156; 84484; 84550; 85025; 85027; 85610; 85730; 93005; 93306; 94640; 94799; 99281; 99285; J1644; J1815; J1940; J2270; J2405; J2930; J7030; J7040; J7512; S0028